=== PATIENT | female | born 1970 | race African-American/Black ===

== ENCOUNTER 2023-07-22 12:00 | Emergency (ER) | payer OTHER ==
[2023-07-22] MEDS ORDERED: LIDOCAINE 1% MPF 2 ML AMPULE ONE (12:34)
[2023-07-22] MEDS ORDERED: AZITHROMYCIN 1 GM PACKET ONE (12:35)
[2023-07-22] MEDS ORDERED: metroNIDAZOLE 500 MG TABLET ONE (12:35)
[2023-07-22] MEDS ORDERED: CEFTRIAXONE 250 MG/VIAL ONE (12:35)
[2023-07-22] MEDS ORDERED: ONDANSETRON 4 MG (ODT) TAB ONE (12:35)
[2023-07-23 14:47] VITALS: BP 154/100; TEMP 98.1; O2SAT 100
== END 2023-07-22 15:38 | disposition home or self-care (01) ==
LOC: ER 12:00
DX: T74.21XA Adult sexual abuse, confirmed, initial encounter (principal)
CPT/HCPCS: 96372; 99284; Q0162; J0696